=== PATIENT | female | born 1965 | race Caucasian/White ===

== ENCOUNTER 2016-06-27 08:34 | Day surgery (SDC) | payer OTHER ==
[~2016-06-27] VITALS: Ht 172.7 cm; Wt 80.0 kg
[~2016-06-27 08:34] MED LIST: 0.9% Sodium Chloride 1,000 ML IV SCH; LISI10TA PO; Sodium Chloride LOK Flush 10 mL Syringe IV PRN; fentaNYL-PF 50 mCg/mL 2 mL Inj IVPUSH PRN
[2016-06-27 09:12] VITALS: BP 140/87; PULSE 101; RESP 16; O2SAT 99
[2016-06-27 11:10] VITALS: BP 102/64; PULSE 103; RESP 16; O2SAT 98
[2016-06-27 11:20] VITALS: BP 102/62; PULSE 103; RESP 14; O2SAT 98
--- NOTE | 2016-06-27 11:41 | ENDO ---
[address] [address] ENDOSCOPY PROCEDURE PATIENT: UMM LAM : 1965 MR#: [id number] ADMIT: 06/27/2016 JOB ID: [id number] PREOPERATIVE DIAGNOSIS: Rectal bleeding. POSTOPERATIVE DIAGNOSES: 1. A 3 cm pedunculated proximal sigmoid colon polyp. 2. A 2 cm mid sigmoid colon polyp. 3. Ascending colon polyp. 4. Submucosal cecal lesion. PROCEDURE: 1. Colonoscopy to cecum with snare polypectomy with cautery x2 with tattooing. 2. Biopsy of the cecum. 3. Biopsy of base of sigmoid colon polyp number two. SURGEON: Manuel Calderón MD INDICATIONS: A 51-year-old female who has had intermittent rectal bleeding with bowel movements. She has never had a colonoscopy and after discussing options with the patient it was elected proceed with a colonoscopy. FINDINGS: She had a good prep. The scope was advanced to the cecum. It was withdrawn over 11 minutes 41 seconds. Two large polyps were identified. Both were in the sigmoid colon, but they were submitted as separate specimens. The more proximal lesion was in the proximal sigmoid colon and had a long stalk. It was removed with a snare and cautery with a substantial length of stalk. It was retrieved and submitted to Pathology. The more distal lesion was smaller, at about 2 cm. It was grossly completely removed. I did do additional biopsies of the base because the base appeared distorted and I could not tell if it was residual polyp versus distortion from the polypectomy. Both areas were tattooed. In the distal ascending colon was a small 2-3 mm polyp that was removed with cold forceps, submitted as a separate specimen. In the cecum there was a submucosal mass that looked like a lipoma. I did a biopsy and it seemed to resolve. Retroflexed views of the rectum were normal. DESCRIPTION OF PROCEDURE: The procedure and sedation plan was discussed with the patient and nursing staff, and a procedural time-out was held. She received 10 mg of Versed and 200 mcg of fentanyl. A digital rectal exam was performed and then the Olympus PCF-H190DL videocolonoscope was passed transanally and advanced ultimately all the way to the cecum. Upon advancing the scope I first identified the proximal sigmoid colon polyp that was on a long stalk. It was difficult but ultimately I was able to get a large snare around it and remove it in its entirety and retrieve it with a substantial length of stalk which appeared normal. It was retrieved and withdrawn with the use of a Goldberg net. When I reintroduced the scope, then noted a more distal sigmoid colon polyp that was right on a bend of the colon. I was able to once again get the large snare around it and then remove it with cautery and then again grossly, achieving resection, but there was some distortion at the base of it so I elected to do several cold biopsies to see if there was additional adenomatous change. These were submitted as a separate specimen. Both these areas were tattooed with submucosal Liliana ink. I then continued advancing the scope all the way to the cecum. As stated above there was a submucosal lesion that, when I biopsied it, it seemed to resolve. Then, in the distal ascending colon was a small polyp that I removed with cold forceps. Again, the withdrawal time was 11 minutes 41 seconds. Retroflexed views were obtained and were normal. The patient tolerated the procedure well. PLAN: Pending the results of histology. I do believe that these are benign polyps despite their size and I anticipate a repeat colonoscopy in six months, in particular to look at the base of the distal sigmoid colon polyp. MODIFIER-22: Both of the large polyps were significantly more difficult then a typical polypectomy because of size and location. MTDD
--- NOTE | 2016-07-03 11:24 | PATH ---
SURGICAL PATHOLOGY Attending Physician:Tatianna Melara CASE STATUS: Signed Out PATIENT NAME: UMM LAM PID: [id number] : 1965 DATE COLLECTED:06/27/2016 20:56 SPECIMEN: 1: Colon, Biopsy 2: Colon, Biopsy 3: Colon, Biopsy 4: Colon, Biopsy 5: Colon, Biopsy CLINICAL HISTORY: 1). SIGMOID COLON POLYP 3CM 2). SIGMOID COLON POLYP 2CM 3). CECAL BIOPSY 4). ASCENDING COLON POLYP X1 5). SIGMOID #2 BASE BIOPSY FINAL DIAGNOSIS: 1.SIGMOID COLON POLYP AT 3 CM: POLYPOID MIXED TUBULAR AND VILLIFORM ADENOMA, APPARENTLY EXCISED. 2.SIGMOID COLON POLYP AT 2 CM: POLYPOID MIXED TUBULAR AND VILLIFORM ADENOMA, APPARENTLY EXCISED. 3.CECAL BIOPSY: SUPERFICIAL FRAGMENT OF COLON MUCOSA WITH PROMINENT LYMPHOID AGGREGATE. Negative for malignancy and significant atypia. 4.ASCENDING COLON POLYP: TUBULAR ADENOMA. 5.SIGMOID BASE BIOPSY (#2): FRAGMENT OF COLON MUCOSA WITH FOCAL MUCOSAL FIBROSIS BUT NO EVIDENCE OF NEOPLASM. ICD10 CODE D12.5 GROSS DESCRIPTION: Received are five formalin-filled containers, each labeled with the patient' s name. 1. Received in formalin, labeled with the patient' s name and "sigmoid colon polyp x1", are two fragments of levy, soft tissue ranging in size from 0.7 x 0.7 x 0.5 cm to 2.5 x 2.0 x 1.5 cm. The smaller fragment is divided and totally submitted in cassette 1A, and the larger fragment is divided and totally submitted in cassettes 1B, 1C, 1D, and 1E. 2. Received in formalin, labeled with the patient' s name and "sigmoid colon polyp at 20 cm", is one fragment of levy, soft tissue measuring 1.5 x 1.0 x 1.0 cm. The fragment is inked, divided, and totally submitted in cassettes 2A and 2B. 3. Received in formalin, labeled with the patient' s name and "cecal biopsy", is one fragment of levy, soft tissue measuring 0.3 x 0.2 x 0.1 cm. The fragment is totally submitted in cassette 3A. 4. Received in formalin, labeled with the patient' s name and "ascending colon polyp x1", is one fragment of levy, soft tissue measuring 0.2 x 0.1 x 0.1 cm. The fragment is totally submitted in cassette 4A. 5. Received in formalin, labeled with the patient' s name and "sigmoid base BX", are three fragments of levy, soft tissue ranging in size from 0.1 x 0.1 x 0.1 cm to 0.2 x 0.1 x 0.1 cm. All fragments are totally submitted in cassette 5A. ([id number]) MICRO DESCRIPTION: See diagnosis. ICD-9 CODES: CPT CODES: 1: 73377 2: 03391 3: 47767 4: 82290 5: 09253 Electronically Signed Out Nilay White MD [facility] [address], [place] [address] Technical component performed at [facility], [address], [place], [address]
== END 2016-06-27 23:59 | disposition home or self-care (01) ==
LOC: END 08:34
PROVIDERS: ATTEND Surgery
DX: D12.2 Benign neoplasm of ascending colon (principal); D12.5 Benign neoplasm of sigmoid colon; K63.5 Polyp of colon; I10 Essential (primary) hypertension
CPT/HCPCS: 45380; 45381; 45385; 99153; G0500; J2250; J3010; J7030